=== PATIENT | female | born 1965 ===

== ENCOUNTER → 2018-12-02 22:27 | Outpatient (REF) | payer OTHER, SELFPAY ==
[2018-12-03 00:14] LABS: Alanine Aminotransferase 62 IU/L (9-52); Albumin 4.9 g/dL (3.5-5.0); Albumin Globulin Ratio 1.4 (1.0-2.8); Alkaline Phosphatase 65 U/L (38-126); Aspartate Aminotransferase 42 IU/L (14-36); Bilirubin Total 0.6 mg/dL (0.2-1.3); Bilirubin Unconjugated 0.3 mg/dL (0.0-1.1); Blood Urea Nitrogen 12 mg/dL (7-17); Calcium 10.6 mg/dL (8.4-10.2); Carbon Dioxide 27 mmol/L (22-32); Chloride 101 mmol/L (98-107); Estimated Glomerular Filt Rate > 60.0 mL/min (>60); Globulin 3.4 g/dL (1.7-4.1); Glucose 153 mg/dL (70-100); HEMOLYSIS < 15 (0-50); Potassium 4.6 mmol/L (3.4-5.1); Sodium 141 mmol/L (137-145); Total Protein 8.3 g/dL (6.3-8.2)
[2018-12-03 05:05] LABS: Hemoglobin A1C% w Est Avg Glu 7.3 % (4.0-6.0)
== END ==
LOC: LAB 22:27
PROVIDERS: Visit Provider Naturopath
DX: E11.9 Type 2 diabetes mellitus without complications (principal); R94.5 Abnormal results of liver function studies
CPT/HCPCS: 36415; 80053; 80076; 83036

== ENCOUNTER → 2018-12-10 22:59 | Outpatient (REF) | payer OTHER, SELFPAY ==
[2018-12-11 00:12] LABS: Calcium 10.5 mg/dL (8.4-10.2); Total Protein 8.2 g/dL (6.3-8.2)
[2018-12-15 14:13] LABS: Parathyroid Hormone Int 39 pg/mL (14-64)
== END ==
LOC: LAB 22:59
PROVIDERS: Visit Provider Naturopath
DX: E83.52 Hypercalcemia (principal); E88.09 Other disorders of plasma-protein metabolism, not elsewhere classified
CPT/HCPCS: 36415; 82310; 83970; 84155